=== PATIENT | female | born 1975 | race Hispanic/Latino ===

== ENCOUNTER → 2020-08-12 | Outpatient (CLI) | payer BC ==
[~2020-08-12] MED LIST: ACET-2743 PO; PNV71COM PO
== END | disposition home or self-care (01) ==
LOC: RAH 11:09
PROVIDERS: ATTEND Obstetrics & Gynecology
DX: Z12.31 Encounter for screening mammogram for malignant neoplasm of breast (principal)
CPT/HCPCS: 77067